=== PATIENT | female | born 1995 | race Caucasian/White ===

== ENCOUNTER 2021-03-18 09:14 | Emergency (ER) | payer OTHER ==
[~2021-03-18] VITALS: Ht 157.5 cm; Wt 63.0 kg
[2021-03-18 09:23] VITALS: BP 130/72
[2021-03-18] MEDS ORDERED: CEFDINIR 300 MG CAPSULE PO ONE (09:30)
[2021-03-18] MEDS ORDERED: PHENAZOPYRIDINE 200 MG TABLET PO ONE (09:30)
[2021-03-18] MEDS ORDERED: CEFDINIR 300 MG CAPSULE ONE (09:33)
[2021-03-18] MEDS ORDERED: PHENAZOPYRIDINE 200 MG TABLET ONE (09:33)
--- NOTE | 2021-03-18 09:39 | NUR ---
TASK RN NOTE: UA LABELLED AND WALKED TO LAB. PT MEDICATED PER EMAR. AWAITING DC PAPERS.
[2021-03-18 09:41] LABS: MICROSCOPIC INDICATED
== END 2021-03-18 10:00 | disposition home or self-care (01) ==
LOC: ED 09:55
DX: N39.0 Urinary tract infection, site not specified (principal)
CPT/HCPCS: 81001; 87086; 99283